=== PATIENT | female | born 1990 ===

== ENCOUNTER 2018-05-04 19:32 | Emergency (ER) | payer OTHER ==
[~2018-05-04] VITALS: Ht 154.9 cm; Wt 74.8 kg
[~2018-05-04 19:32] MED LIST: DICLEGIS DR 101 EACH PO; METOPROLOL SUCC25 MG PO; PRENATAL CAPLE1 EACH PO; PROTONIX40 M1 PO; TOPROL XL25 M1 PO; XOPENEX HFA15 GM IH; XOPENEX0.63 MG/3 IH; ZYNCOF 20-400120 ML PO
== END 2018-05-04 23:42 | disposition home or self-care (01) ==
LOC: ER 19:32
DX: O20.8 Other hemorrhage in early pregnancy (principal); Z34.01 Encounter for supervision of normal first pregnancy, first trimester